=== PATIENT | female | born 1960 | race Two or more races ===

== ENCOUNTER 2018-05-02 16:30 | Emergency (ER) | payer BC ==
[~2018-05-02] VITALS: Ht 162.6 cm; Wt 59.9 kg
[2018-05-02 16:37] VITALS: Ht 162.6 cm; Wt 59.9 kg
[2018-05-02 18:09] LABS: BASOPHIL % 0.1 % (0-2); PLATELET COUNT 215 x10^3mcL (130-400); RED CELL DISTRIBUTION WIDTH 14.1 % (11.5-14.5)
[2018-05-02 18:39] LABS: CALCIUM 8.7 mg/dL (8.5-10.1); CARBON DIOXIDE 26.5 mmol/L (21-32); CHLORIDE SERUM 97 mmol/L (98-107); CREATININE SERUM 0.8 mg/dL (0.6-1.0); GFR1 > 60 mL/min; GLUCOSE SERUM 119 mg/dL (74-106); POTASSIUM SERUM 4.4 mmol/L (3.5-5.1); SODIUM SERUM 133 mmol/L (136-145)
[2018-05-02 18:45] LABS: ALBUMIN 3.9 g/dL (3.4-5.0); ALKALINE PHOSPHATASE 65 U/L (46-116); ALT/SGPT 29 U/L (14-59); AST/SGOT 30 U/L (15-37); BILIRUBIN TOTAL 0.36 mg/dL (0.20-1.00); HDL CHOLESTEROL 60 mg/dL (40-60); MAGNESIUM 2.1 mg/dL (1.8-2.4); TOTAL PROTEIN, SERUM 7.6 g/dL (6.4-8.2)
[2018-05-02 18:46] LABS: CHOLESTEROL 231 mg/dL (<200)
[2018-05-02 22:46] VITALS: BP 127/82
== END 2018-05-02 22:00 | disposition home or self-care (01) ==
LOC: ED 16:30
PROVIDERS: Emergency Medicine
DX: R42 Dizziness and giddiness (principal)
CPT/HCPCS: 82962; J2550; J7030; J8597; Q0092